=== PATIENT | female | born 1975 | race African-American/Black ===

== ENCOUNTER → 2021-02-16 | Outpatient (CLI) | payer OTHER ==
--- NOTE | 2021-02-16 16:58 | RAD ---
EXAM: AP and lateral views of the lumbar spine DATE: 02/16/2021 10:11 AM INDICATION: Reason: KNEE,BACK AND CHEST PAIN,HEAD ISSUE,disablity determination / Spl. Instructions: / History: COMPARISON: No Prior FINDINGS: Vertebral body heights are preserved. Disc heights are preserved. Mild L4-5 and L5-S1 facet degenerat yudelka change. No spondylolisthesis. Moderate colonic stool content is seen. IMPRESSION: 1. No evidence for acute fracture or subluxation. 2. Moderate colonic stool content is seen. 3. Mild facet degenerative change lower lumbar spine. Electronically signed by: Jose Llamas MD (02/16/2021 4:56 PM) [email or web address]
--- NOTE | 2021-02-16 16:59 | RAD ---
EXAM: AP, lateral, swimmer's views of the cervical spine DATE: 02/16/2021 10:11 AM CLINICAL HISTORY: Reason: KNEE,BACK AND CHEST PAIN,HEAD ISSUE,disablity determination / Spl. Instruct ions: / History: COMPARISON: None available. FINDINGS: On the lateral view, the cervical spine is imaged from the skull base to C6. Vertebral body heights are preserved. Intervertebral disc heights are preserved. Straightening of the normal cervical lordosis. No spondylolisthesis. Normal predental space. No significant prevertebral soft tissue swelling. IMPRESSION: No acute fracture or subluxation. Electronically signed by: Jose Llamas MD (02/16/2021 4:57 PM) [email or web address]
--- NOTE | 2021-02-16 17:02 | RAD ---
EXAM: AP and lateral views of both knees DATE: 02/16/2021 10:11 AM INDICATION: Reason: KNEE,BACK AND CHEST PAIN,HEAD ISSUE,disablity determination / Spl. Instructions: / History: COMPARISON: No Prior FINDINGS: No acute fracture or dislocation. No joint effusion. Joint spaces are preserved without significant degenerative/proliferative change. IMPRESSION: No acute fracture or dislocation. No knee joint effusion. Electronically signed by: Jose Llamas MD (02/16/2021 4:59 PM) [email or web address]
== END ==
LOC: RAD 09:31
PROVIDERS: ATTEND Anesthesiology Pain Medicine
DX: Z02.71 Encounter for disability determination (principal); M47.817 Spondylosis without myelopathy or radiculopathy, lumbosacral region; M25.551 Pain in right hip; M25.552 Pain in left hip
CPT/HCPCS: 72040; 72100; 73560-50